=== PATIENT | female | born 1965 | race Caucasian/White ===

== ENCOUNTER 2018-04-26 01:50 | Emergency (ER) | payer BC, OTHER ==
[~2018-04-26] VITALS: Ht 149.9 cm; Wt 50.0 kg
[2018-04-26 02:01] VITALS: BP 180/73
[2018-04-26] MEDS ORDERED: KETOROLAC 30 MG/1 ML ONE (02:27)
[2018-04-26] MEDS ORDERED: ONDANSETRON ODT 4 MG ONE (02:27)
[2018-04-26] MEDS ORDERED: KETOROLAC 30 MG/1 ML IM ONE (02:30)
[2018-04-26] MEDS ORDERED: ONDANSETRON ODT 4 MG PO ONE (02:30)
== END 2018-04-26 03:26 | disposition home or self-care (01) ==
LOC: ED 03:00
DX: K62.3 Rectal prolapse (principal); K62.5 Hemorrhage of anus and rectum; M19.90 Unspecified osteoarthritis, unspecified site; Z90.89 Acquired absence of other organs
CPT/HCPCS: 96372; 99283; J1885; Q0162

== ENCOUNTER → 2020-09-13 | Outpatient (CLI) | payer BC ==
[~2020-09-13] MED LIST: ALPR0.254 PO; CALC-787 PO; DICL100G19 TD
[2020-09-13 15:31] LABS: BASOPHILS % (AUTO) 1 % (0-1); EOSINOPHILS % (AUTO) 1 % (1-7); LYMPHOCYTES % (AUTO) 26 % (22-44); MEAN CORPUSCULAR HEMOGLOBIN 32.8 pg (27.0-34.8); MEAN CORPUSCULAR HGB CONC 34.1 g/dL (32.4-35.8); MEAN PLATELET VOLUME 6.6 fL (7.4-10.4); MONOCYTES % (AUTO) 7 % (2-9); NEUTROPHILS % (AUTO) 65 % (42-75); PLATELET COUNT 135 x10^3/uL (130-400); RED BLOOD COUNT 3.76 x10^6/uL (3.82-5.3); RED CELL DISTRIBUTION WIDTH 13.4 % (9.6-15.2)
[2020-09-13 15:34] LABS: MD NO
[2020-09-13 15:41] LABS: ALANINE AMINOTRANSFERASE 25 U/L (12-78); ALBUMIN 3.8 g/dL (3.4-5.0); ANION GAP 8 mmol/L (5-15); CALCIUM 8.3 mg/dL (8.5-10.1); CHLORIDE 110 mmol/L (98-107)
[2020-09-13 15:43] LABS: ALKALINE PHOSPHATASE 136 U/L (45-117); BILIRUBIN,TOTAL 0.4 mg/dL (0.2-1.0)
== END | disposition home or self-care (01) ==
LOC: STAR 14:26
PROVIDERS: ATTEND Colon & Rectal Surgery
DX: Z01.812 Encounter for preprocedural laboratory examination (principal); Z20.822 Contact with and (suspected) exposure to COVID-19; I51.7 Cardiomegaly
CPT/HCPCS: 80053; 85025; 87635; 93005

== ENCOUNTER 2020-09-19 05:54 | Inpatient (IN) | payer BC ==
[~2020-09-19] VITALS: Ht 149.9 cm; Wt 54.7 kg
[2020-09-19] MEDS ORDERED: SERT50TA28 PO (06:37)
[2020-09-19] MEDS ORDERED: OMEP-110 PO (06:37)
[2020-09-19] MEDS ORDERED: MIDAZOLAM 1 MG/ML, 2ML ONE (06:57)
[2020-09-19] MEDS ORDERED: ROCURONIUM 10MG/ML,5ML ONE ×2 (06:58→09:24)
[2020-09-19] MEDS ORDERED: FENTANYL PF 250 MCG/5ML ONE (06:58)
[2020-09-19] MEDS ORDERED: PROPOFOL 10 MG/ML, 20ML ONE (06:58)
[2020-09-19] MEDS ORDERED: CHLORHEXIDINE 15 ML UDC MM ONE (07:00)
[2020-09-19] MEDS ORDERED: DEXAMETHASONE 4 MG/ML, 1ML ONE ×2 (07:04)
[2020-09-19] MEDS ORDERED: INDOCYANINE GREEN 25 MG VIAL ONE (07:18)
[2020-09-19] MEDS ORDERED: FLUORESCEIN SODIUM 500 MG/5 ML ONE (07:18)
[2020-09-19] MEDS ORDERED: SCOPOLAMINE 1MG PATCH TD ONE (07:30)
[2020-09-19] MEDS ORDERED: BUPIVACAINE/PF 0.25% ONE (07:30)
[2020-09-19] MEDS ORDERED: LACTATED RINGERS 1,000 ML IV SCH (07:30)
[2020-09-19] MEDS ORDERED: CEFOTETAN 2 GM ONE (07:37)
[2020-09-19] MEDS ORDERED: ONDANSETRON 2MG/ML, 2ML ONE (07:37)
[2020-09-19] MEDS ORDERED: EPHEDRINE 50 MG/ML, 1ML ONE (08:20)
[2020-09-19] MEDS ORDERED: ACETAMINOPHEN 325 MG TABLET PO PRN (08:30)
[2020-09-19] MEDS ORDERED: MIDAZOLAM 1 MG/ML, 2ML IV PRN (08:30)
[2020-09-19] MEDS ORDERED: OXYcodone 5 MG/5 ML ORAL.SOL UDC PO PRN (08:30)
[2020-09-19] MEDS ORDERED: PROMETHAZINE 25 MG/ML, 1ML IVPush PRN (08:30)
[2020-09-19] MEDS ORDERED: LABETALOL 5MG/ML, 20ML IV PRN (08:30)
[2020-09-19] MEDS ORDERED: ONDANSETRON 2MG/ML, 2ML IVPush PRN (08:30)
[2020-09-19] MEDS ORDERED: HYDROmorphone 1 MG/ML, 1ML INJ IVPush PRN ×2 (08:30→12:00)
[2020-09-19] MEDS ORDERED: hydrALAzine 20 MG/ML, 1ML IV PRN (08:30)
[2020-09-19] MEDS ORDERED: MEPERIDINE/PF 25MG/0.5ML IVPush PRN (08:30)
[2020-09-19] MEDS ORDERED: hydrALAzine 20 MG/ML, 1ML ONE (08:37)
[2020-09-19] MEDS ORDERED: METOPROLOL 1 MG/ML, 5ML ONE (09:48)
[2020-09-19] MEDS ORDERED: NEOSTIGMINE 1 MG/ML, 10ML ONE (09:49)
[2020-09-19] MEDS ORDERED: GLYCOPYRROLATE 0.2MG/1ML, 5ML ONE (09:49)
[2020-09-19] MEDS ORDERED: FENTANYL PF 100 MCG/2ML ONE (10:29)
[2020-09-19] MEDS: FENTANYL PF 100 MCG/2ML IV PRN ×3 (10:30→10:45)
[2020-09-19] MEDS ORDERED: OXYcodone 5 MG/5 ML ORAL.SOL UDC ONE (10:33)
[2020-09-19] MEDS ORDERED: ACETAMINOPHEN 650 MG/20.3 ML UDC ONE (10:33)
[2020-09-19] MEDS ORDERED: TRAZODONE 50MG TABLET PO PRN (12:00)
[2020-09-19] MEDS ORDERED: DIPHENHYDRAMINE 50 MG/ML, 1ML IVPush PRN (12:00)
[2020-09-19] MEDS ORDERED: LORazepam 0.5MG TABLET PO PRN (12:00)
[2020-09-19] MEDS ORDERED: CALCIUM CARBONATE 500 MG TAB.CHEW PO PRN (12:00)
[2020-09-19] MEDS ORDERED: ALPRAZOLAM MC SCH (12:00)
[2020-09-19] MEDS ORDERED: DICLOFENAC MC SCH (12:00)
[2020-09-19] MEDS ORDERED: HALOPERIDOL 5 MG/ML IVPush PRN (12:00)
[2020-09-19] MEDS ORDERED: DIPHENHYDRAMINE 25 MG CAPSULE PO PRN (12:00)
[2020-09-19] MEDS ORDERED: ONDANSETRON 2MG/ML, 2ML IV PRN (12:00)
[2020-09-19] MEDS ORDERED: DEXAMETHASONE 4 MG/ML, 1ML IVPush PRN (12:00)
[2020-09-19] MEDS ORDERED: LORazepam 2 MG/ML, 1ML IVPush PRN (12:00)
[2020-09-19] MEDS ORDERED: SCOPOLAMINE PATCH, 1.5MG PATCH.TD72 TD PRN (12:00)
[2020-09-19] MEDS: KETOROLAC 30 MG/1 ML IVPush SCH ×3 (12:03→23:46)
[2020-09-19] MEDS: ACETAMINOPHEN 500 MG TABLET PO SCH ×3 (12:03→23:46)
[2020-09-19 14:00] VITALS: BP 101/61
[2020-09-19] MEDS: OXYcodone IR 5MG TABLET PO PRN ×3 (14:15→21:30)
[2020-09-19] MEDS ORDERED: ENOXAPARIN 40 MG/0.4 ML SQ SCH (17:00)
[2020-09-19 18:33] VITALS: BP 110/57
[2020-09-20 01:35] VITALS: BP 127/55
[2020-09-20] MEDS: OXYcodone IR 5MG TABLET PO PRN ×2 (03:03→07:34)
[2020-09-20 05:16] LABS: ALBUMIN 3.2 g/dL (3.4-5.0); ANION GAP 5 mmol/L (5-15); CALCIUM 8.8 mg/dL (8.5-10.1); CHLORIDE 106 mmol/L (98-107); CREATININE 1.01 mg/dL (0.55-1.02)
[2020-09-20 05:19] LABS: BASOPHILS % (AUTO) 0 % (0-1); EOSINOPHILS % (AUTO) 1 % (1-7); LYMPHOCYTES % (AUTO) 24 % (22-44); MEAN CORPUSCULAR HEMOGLOBIN 32.6 pg (27.0-34.8); MEAN CORPUSCULAR HGB CONC 33.6 g/dL (32.4-35.8); MEAN PLATELET VOLUME 6.3 fL (7.4-10.4); MONOCYTES % (AUTO) 8 % (2-9); NEUTROPHILS % (AUTO) 67 % (42-75); PLATELET COUNT 143 x10^3/uL (130-400); RED BLOOD COUNT 3.74 x10^6/uL (3.82-5.3); RED CELL DISTRIBUTION WIDTH 13.8 % (9.6-15.2)
[2020-09-20 05:21] LABS: MD NO
[2020-09-20] MEDS ORDERED: OMEPRAZOLE 20 MG CAPSULE.DR PO SCH (06:00)
[2020-09-20] MEDS: KETOROLAC 30 MG/1 ML IVPush SCH (06:17)
[2020-09-20] MEDS: ACETAMINOPHEN 500 MG TABLET PO SCH (06:17)
[2020-09-20] MEDS ORDERED: OXYC-302 PO (07:50)
[2020-09-20 08:59] VITALS: BP 118/69
[2020-09-20] MEDS ORDERED: SERTRALINE 50MG TABLET PO SCH (09:00)
== END 2020-09-20 10:03 | disposition home or self-care (01) | DRG 331 ==
LOC: ORIP 05:54 → 4NE 11:26 → DCLOUNGE 09-20 09:55
PROVIDERS: ADMIT Colon & Rectal Surgery; ATTEND Colon & Rectal Surgery
PROC: 0DSP8ZZ Reposition Rectum, Via Natural or Artificial Opening Endoscopic (ICD-10-PCS; 2020-09-19)
PROC: 8E0W4CZ Robotic Assisted Procedure of Trunk Region, Percutaneous Endoscopic Approach (ICD-10-PCS; 2020-09-19)
PROC: 0DTP4ZZ Resection of Rectum, Percutaneous Endoscopic Approach (ICD-10-PCS; principal; 2020-09-19 07:30)
DX: K62.3 Rectal prolapse (principal)
CPT/HCPCS: 36415; 80048; 82040; 83735; 85025; 86850; 86900; 88307; C1729; G0378; J1100; J1650; J1885; J2250; J2405; J2704; J2710; J3010; J0360; J7120

== ENCOUNTER 2020-12-05 13:28 | Emergency (ER) | payer BC, OTHER ==
[~2020-12-05] VITALS: Ht 152.4 cm; Wt 70.0 kg
[~2020-12-05 13:28] MED LIST changes: +OMEP-110 PO; +OXYC-302 PO; +SERT50TA28 PO
[2020-12-05] MEDS ORDERED: HALOPERIDOL 5 MG/ML IM ONE (13:30)
--- NOTE | 2020-12-05 13:34 | NUR ---
Sister Theresa Dominguez [phone] Son Nehemiah Stone [phone]
[2020-12-05] MEDS ORDERED: HALOPERIDOL 5 MG/ML ONE (13:38)
--- NOTE | 2020-12-05 13:46 | NUR ---
PT IN LOCKED 2 PT RESTRAINTS, CHECKED CMS. RPD LEFT. PT ON LEGAL, SITTER IN PLACE. ABBEY SALINAS PER SEP.
[2020-12-05 14:09] LABS: BASOPHILS % (AUTO) 1 % (0-1); EOSINOPHILS % (AUTO) 2 % (1-7); LYMPHOCYTES % (AUTO) 31 % (22-44); MEAN CORPUSCULAR HGB CONC 33.5 g/dL (32.4-35.8); MEAN PLATELET VOLUME 6.2 fL (7.4-10.4); MONOCYTES % (AUTO) 7 % (2-9); NEUTROPHILS % (AUTO) 60 % (42-75); PLATELET COUNT 152 x10^3/uL (130-400); RED BLOOD COUNT 4.09 x10^6/uL (3.82-5.3); RED CELL DISTRIBUTION WIDTH 14.1 % (9.6-15.2)
[2020-12-05 14:11] LABS: MD NO
[2020-12-05 14:17] LABS: ALANINE AMINOTRANSFERASE 27 U/L (12-78); ALBUMIN 3.7 g/dL (3.4-5.0); ANION GAP 8 mmol/L (5-15); CALCIUM 8.8 mg/dL (8.5-10.1); CHLORIDE 111 mmol/L (98-107); CREATININE 0.72 mg/dL (0.55-1.02)
[2020-12-05 14:22] LABS: ALKALINE PHOSPHATASE 135 U/L (45-117); BILIRUBIN,TOTAL 0.2 mg/dL (0.2-1.0); SALICYLATE LEVEL 1.9 mg/dL (2.8-20.0); TOTAL PROTEIN 7.5 g/dL (6.4-8.2)
--- NOTE | 2020-12-05 14:35 | NUR ---
SECURITY REMOVED RESTRAINTS . PT IS CALM AND COOPERATIVE AND STATED UNDERSTANDING OF REASON FOR BEING IN THE HOSPITAL.
[2020-12-05 14:55] LABS: MICROSCOPIC AUTO
[2020-12-05 15:04] LABS: AMPHETAMINE SCREEN, URINE Negative (Negative); BARBITURATE SCREEN, URINE Negative (Negative); BENZODIAZEPINE SCREEN, URINE Negative (Negative); CANNABINOID SCREEN, URINE Negative (Negative); COCAINE SCREEN, URINE Negative (Negative); METHADONE SCREEN, URINE Negative (Negative); OPIATE SCREEN, URINE Negative (Negative)
--- NOTE | 2020-12-05 15:41 | NUR ---
PSYCH DENTAL FRONT OFFICE ASSISTANT BEDSIDE
--- NOTE | 2020-12-05 16:01 | NUR ---
PT MEDS: LOSARTAN 100 MG QD ZOLOFT 50 MG QD MIRTAZIPINE 15 MG QDHS
[2020-12-05] MEDS ORDERED: SERTRALINE 50MG TABLET ONE (16:13)
[2020-12-05] MEDS ORDERED: SERT-331 PO (16:14)
[2020-12-05] MEDS ORDERED: DOXE3TAB4 PO (16:14)
--- NOTE | 2020-12-05 16:16 | NUR ---
PT MEDICATED PER MAR.
[2020-12-05] MEDS ORDERED: SERTRALINE 50MG TABLET PO ONE (16:30)
--- NOTE | 2020-12-05 16:52 | NUR ---
PT SISTER ARRIVED BEDSIDE. PT BEGAN TO BE AGGRAVATED BY THE SISTER'S PRESENCE AND THE THE SISTER WAS ASKED TO WAIT IN THE LOBBY. PT GIVEN DINNER TRAY AND PSYCH CONTROL SYSTEMS TECHNICIAN ADVISED.
--- NOTE | 2020-12-05 18:15 | NUR ---
PT AND SON REC'VD DISCHARGE INSTRUCTIONS AND EDUCATION. PT HAD NO QUESTIONS. PT AND SON AMBULATED TO DC AREA, STEADY GAIT.
[2020-12-05 18:17] VITALS: BP 175/100
== END 2020-12-05 18:22 | disposition home or self-care (01) ==
LOC: ED 13:54
DX: R45.851 Suicidal ideations (principal); F10.10 Alcohol abuse, uncomplicated; F44.9 Dissociative and conversion disorder, unspecified; F41.1 Generalized anxiety disorder; I10 Essential (primary) hypertension; M19.90 Unspecified osteoarthritis, unspecified site; Z90.89 Acquired absence of other organs; Y90.0 Blood alcohol level of less than 20 mg/100 ml
CPT/HCPCS: 36415; 80053; 80299; 80307; 80320; 80329; 81001; 85025; 87086; 93005; 96372; 99285; J1630; G0480